=== PATIENT | male | born 2000 | race Caucasian/White ===

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

== ENCOUNTER 2019-01-15 07:34 | Day surgery (SDC) | payer OTHER ==
[~2019-01-15] VITALS: Ht 167.6 cm; Wt 60.8 kg
[~2019-01-15 07:34] MED LIST changes: +LIDOCAINE 1% MDV 20ML VIAL SQ PRN; +LIDOCAINE 2% INJ 100 MG/5 ML SDV (FOR ANES.) As Ordered ONE; +ONDANSETRON 4MG/2ML VIAL (J2405) As Ordered ONE; +PROPOFOL 200 MG/20 ML VIAL As Ordered ONE; +ROCURONIUM BROMIDE 50 MG/5 ML VIAL As Ordered ONE; +dexameTHASONE 4 MG/ML 1ML VIAL (J1100) As Ordered ONE
[2019-01-15] MEDS ORDERED: LR 1,000 ML IV ONE (08:00)
[2019-01-15] MEDS ORDERED: MIDAZOLAM INJ 2 MG/2 ML VIAL (J2250) As Ordered ONE (08:38)
[2019-01-15] MEDS ORDERED: fentaNYL 100 MCG/2 ML INJECTION (J3010) As Ordered ONE ×2 (08:39→09:22)
[2019-01-15] MEDS ORDERED: OXYMETAZOLINE NASAL SPRAY (AFRIN) As Ordered ONE (08:40)
[2019-01-15] MEDS ORDERED: LIDOCAINE W/EPINEPHRINE 1% 20ML VIAL As Ordered ONE (08:40)
[2019-01-15] MEDS ORDERED: METHYLENE BLUE 0.5% (5MG/ML) 10 ML AMP (PROVAYBLUE)(Q9968 PER 1MG) As Ordered ONE (08:41)
[2019-01-15] MEDS ORDERED: ACETAMINOPHEN 1000MG 100ML IV BTL (OFIRMEV) (J0131 PER 10MG) As Ordered ONE (09:09)
[2019-01-15] MEDS ORDERED: SODIUM CHLORIDE 0.9% NASAL GEL 15GM (AYR) As Ordered ONE (09:22)
[2019-01-15] MEDS ORDERED: SUGAMMADEX SODIUM 500 MG/5 ML VIAL (BRIDION) As Ordered ONE (09:29)
[2019-01-15] MEDS ORDERED: LR 1,000 ML IV SCH (10:30)
[2019-01-15] MEDS ORDERED: fentaNYL 100 MCG/2 ML INJECTION (J3010) IV PRN (10:30)
[2019-01-15] MEDS ORDERED: ONDANSETRON 4MG/2ML VIAL (J2405) IV PRN (10:30)
[2019-01-15] MEDS ORDERED: NORCO, ANEXSIA 5/325MG TABLET (HYDROcodone/ACETAMINOPHEN) PO PRN (10:30)
[2019-01-15] MEDS ORDERED: PERCOCET 5MG/325MG TAB PO PRN (10:30)
[2019-01-15] MEDS ORDERED: oxyCODONE 5MG TAB As Ordered ONE (10:39)
[2019-01-15] MEDS ORDERED: PROPOFOL 200 MG/20 ML VIAL As Ordered ONE (10:54)
[2019-01-15] MEDS ORDERED: oxyCODONE 5MG TAB PO PRN (11:00)
[2019-01-15 11:05] VITALS: BP 122/73
--- NOTE | 2019-01-15 21:51 | RO ---
DATE OF PROCEDURE: 01/15/2019 PREOPERATIVE DIAGNOSIS: Septal deviation and turbinate hypertrophy. POSTOPERATIVE DIAGNOSIS: Septal deviation and turbinate hypertrophy. OPERATION PERFORMED: 1. Septoplasty. 2. Submucous coblation utilizing a Reflex 45 Wand of the inferior turbinates. SURGEON: Geoff Marquis Jr, MD [employer] SUPERVISOR: ANESTHESIA: INDICATIONS FOR PROCEDURE: Significant septal deviation and nasal congestion. PROCEDURE IN DETAIL: With the patient in the supine position, after time-out had been performed and the patient had been positively identified, the patient was prepped and draped in the usual fashion. Nasal cavity was decongested with topical Afrin, injection of 1% lidocaine, 1:100,000 epinephrine was injected in the mucoperichondrium-mucoperiosteum, 8 mls. The patient had evidence of significant cartilaginous fractures, especially near the tip, and the left hemitransfixion ensued. Mucoperichondrium, mucoperiosteum, bony cartilaginous junctions were . The fracture at the tip had folded over. This was freed on the opposite side, sutured with PDS clear #3-0 to try and maintain somewhat of a tip projection; however, there was a lot of scar and capsule formation in this area, which was difficult. The bony cartilaginous junctions had been inferiorly, posteriorly. There also was significant deflection of the cartilage posteriorly, more to the right posterior-superiorly as it attached to the perpendicular plate of the ethmoid. The [employer] was used to release some of this bone superiorly and portion of the posterior quadrangular cartilage was excised, initially with a #15 blade and then elevated on the other side, keeping the mucoperichondrium intact and no perforation on either side. This was done without significant difficulty. This was placed in saline and then trimmed and then later on, will be put back into position. Next, attention then was drawn to the patient's inferior aspect where approximately 2-3 mm inferiorly the inferior cartilage was released from the maxillary crest. Then, the PDS was used to suture through the inferior aspect of that cartilage just inferior to the nasal spine to try and keep that in position. Fragments of posterior bone were removed and sent, part of cartilage was removed and sent except for the vital structures. There was a 1 cm strut left posteriorly, superiorly and then caudally. However, the fracture of the cartilage was attempted to put back into place with the #3-0 PDS clear. However, because of the contracture, I did not want to stay in the proper position the whole time. However, there was significant improvement in the patient's airway, and the surgeon did not want to remove the rest of that cartilage at this point to prevent any saddle nose deformity. At this point, the septum stayed fairly midline, slight deflection still to the left inferiorly but not causing any significant airway issues at all. The inferior turbinates were coblated with the Reflex 45 Coblation Wand setting at 4 coblate and 2 coag, three passes made on the left, two passes made on the right. This was done after injecting 1% lidocaine, 1:100,000 epinephrine into the inferior turbinates bilaterally. At the beginning of the procedure, a total of 8 mL was injected in the cartilage and mucoperichondrium and then intraoperatively 3 mL total were injected. #3-0 chromic was used to suture the septocolumellar stitch in place, two of them were placed, which actually held the septum in very good position with good opening. At this point, attention then was drawn to placing the Shetty nasal pack with the straws on the left as well as the right side and sutured transseptally with #4-0 nylon. The patient tolerated this well. There were no problems. No complications. Trimmed NasoPore was placed above, the straws were irrigated and then suctioned. There were no problems, no complications. The patient did very well and control was turned back over to the paraffiner. Estimated blood loss was approximately 10-15 mL. MTDD
== END 2019-01-15 11:54 | disposition home or self-care (01) ==
LOC: M SDC 07:34
PROVIDERS: ATTEND Otolaryngology
DX: J34.2 Deviated nasal septum (principal); J34.3 Hypertrophy of nasal turbinates
CPT/HCPCS: 30140; 30520; 88300; J0131; J1100; J2250; J2405; J3010; Q9968